=== PATIENT | female | born 1965 | race Caucasian/White ===

== ENCOUNTER 2017-10-16 10:46 | Emergency (ER) | payer OTHER ==
[~2017-10-16] VITALS: Ht 162.5 cm; Wt 93.4 kg
[2017-10-16] MEDS ORDERED: DELTASONE20 M1 PO (12:39)
[2017-10-16] MEDS ORDERED: TESSALON PERLE100 M1 PO (12:39)
[2017-10-16] MEDS ORDERED: PROVENTIL HFA6.7 GM INH (12:39)
[2017-10-16] MEDS ORDERED: HYCODAN/HYDROMET5 ML PO (12:49)
== END 2017-10-16 12:42 | disposition home or self-care (01) ==
LOC: ED 10:46
DX: J40 Bronchitis, not specified as acute or chronic (principal); F17.200 Nicotine dependence, unspecified, uncomplicated; Z90.711 Acquired absence of uterus with remaining cervical stump

== ENCOUNTER 2017-12-21 15:55 | Emergency (ER) | payer OTHER ==
[~2017-12-21] VITALS: Ht 160 cm; Wt 94.3 kg
[~2017-12-21 15:55] MED LIST: DELTASONE20 M1 PO; HYCODAN/HYDROMET5 ML PO; PROVENTIL HFA6.7 GM INH; TESSALON PERLE100 M1 PO
[2017-12-21 16:48] LABS: BASO # 0.1 10*3/uL (0.0-0.1); BASO % 0.6 % (0.0-1.0); EOS # 0.1 10*3/uL (0.0-0.4); EOS % 0.8 % (1.0-4.0); HEMATOCRIT 42.4 % (37.0-47.0); HEMOGLOBIN 14.1 g/dl (12.0-16.0); LYMPH # 2.9 10*3/uL (1.3-4.4); LYMPH % 35.2 % (27.0-41.0); MEAN CELL VOLUME 85.5 fl (81.0-99.0); MEAN CORPUSCULAR HGB 28.4 pg (27.0-31.0); MEAN CORPUSCULAR HGB CONC 33.3 g/dl (33.0-37.0); MEAN PLATELET VOLUME 11.5 fl (9.6-12.3); MONO # 0.6 10*3/uL (0.1-1.0); MONO % 6.8 % (3.0-9.0); NEUT # 4.7 10*3/uL (2.3-7.9); NEUT % 56.4 % (47.0-73.0); PLATELET COUNT AUTOMATED 219 10*3/uL (130-400); RED BLOOD COUNT 4.96 10*6/uL (4.10-5.10); RED CELL DISTRI WIDTH 12.2 % (0-14.5); WHITE BLOOD COUNT 8.3 10*3/uL (4.8-10.8)
[2017-12-21 16:52] LABS: BILIRUBIN NEGATIVE (NEGATIVE); BLOOD NEGATIVE (NEGATIVE); CLARITY CLEAR (CLEAR); COLOR YELLOW (YELLOW); GLUCOSE 2+ (NEGATIVE); KETONE NEGATIVE (NEGATIVE); LEUKO ESTERASE NEGATIVE (NEGATIVE); NITRITE NEGATIVE (NEGATIVE); SPECIFIC GRAVITY <= 1.005 (1.005-1.030); UROBILINOGEN 0.2 E.U./dl (0.2-1.0)
[2017-12-21 17:04] LABS: WBC 0-2 wbc/hpf (0-5)
[2017-12-21 17:04] LABS: ALBUMIN 3.9 gm/dl (3.1-4.5); ALKALINE PHOSPHATASE 169 U/L (45-117); BUN 12 mg/dl (7-24); CHLORIDE 100 mmol/L (98-107); CREATININE 1.12 mg/dL (0.55-1.02); SGOT/AST 15 IU/L (3-35); SGPT/ALT 32 U/L (12-78); SODIUM 135 mmol/L (136-145); TOTAL PROTEIN 7.5 gm/dL (6.4-8.2)
[2017-12-21] MEDS ORDERED: METFORMIN HCL500 MG PO (18:19)
== END 2017-12-21 18:32 | disposition home or self-care (01) ==
LOC: ED 15:55
PROVIDERS: Emergency Medicine
DX: E11.9 Type 2 diabetes mellitus without complications (principal); Z90.711 Acquired absence of uterus with remaining cervical stump; Z79.899 Other long term (current) drug therapy

== ENCOUNTER 2021-12-03 13:02 | Emergency (ER) | payer OTHER ==
[~2021-12-03] VITALS: Ht 162.5 cm; Wt 95.3 kg
[~2021-12-03 13:02] MED LIST changes: +METFORMIN HCL500 MG PO
[2021-12-03 14:49] LABS: BASO # 0.1 10*3/uL (0.0-0.1); BASO % 0.7 % (0.0-1.0); EOS # 0.1 10*3/uL (0.0-0.4); HEMATOCRIT 43.8 % (37.0-47.0); LYMPH # 1.9 10*3/uL (1.3-4.4); LYMPH % 20.7 % (27.0-41.0); MEAN CELL VOLUME 86.2 fl (81.0-99.0); MEAN CORPUSCULAR HGB 28.7 pg (27.0-31.0); MEAN CORPUSCULAR HGB CONC 33.3 g/dl (33.0-37.0); MEAN PLATELET VOLUME 10.5 fl (9.6-12.3); MONO # 0.8 10*3/uL (0.1-1.0); MONO % 9.1 % (3.0-9.0); NEUT # 6.1 10*3/uL (2.3-7.9); NEUT % 68.2 % (47.0-73.0); PLATELET COUNT AUTOMATED 295 10*3/uL (130-400); RED BLOOD COUNT 5.08 10*6/uL (4.10-5.10); WHITE BLOOD COUNT 8.9 10*3/uL (4.8-10.8)
[2021-12-03 15:06] LABS: CREATININE 1.14 mg/dL (0.55-1.02); POTASSIUM 3.8 mmol/L (3.5-5.1); TOTAL PROTEIN 7.2 gm/dL (6.4-8.2)
[2021-12-03] MEDS ORDERED: CIPRO500 MG PO (19:06)
[2021-12-03] MEDS ORDERED: METRONIDAZOLE500 M1 PO (19:06)
== END 2021-12-03 19:27 | disposition home or self-care (01) ==
LOC: ED 13:02
PROVIDERS: Physician Assistant
DX: K52.9 Noninfective gastroenteritis and colitis, unspecified (principal); Z90.711 Acquired absence of uterus with remaining cervical stump

== ENCOUNTER → 2022-12-12 | Outpatient (CLI) | payer MEDICAID ==
[~2022-12-12] MED LIST changes: +CIPRO500 MG PO; +METRONIDAZOLE500 M1 PO
== END | disposition home or self-care (01) ==
LOC: US 10-14 08:30
PROVIDERS: ATTEND Nurse Practitioner
DX: K76.0 Fatty (change of) liver, not elsewhere classified (principal)

== ENCOUNTER 2022-12-20 12:29 | Emergency (ER) | payer MEDICAID ==
[~2022-12-20] VITALS: Ht 162.5 cm; Wt 82.6 kg
[2022-12-20 13:00] LABS: BASO # 0.1 10*3/uL (0.0-0.1); BASO % 0.5 % (0.0-1.0); EOS # 0.1 10*3/uL (0.0-0.4); EOS % 0.7 % (1.0-4.0); HEMATOCRIT 44.7 % (37.0-47.0); LYMPH # 2.8 10*3/uL (1.3-4.4); LYMPH % 26.8 % (27.0-41.0); MEAN CORPUSCULAR HGB 29.2 pg (27.0-31.0); MEAN CORPUSCULAR HGB CONC 33.6 g/dl (33.0-37.0); MEAN PLATELET VOLUME 10.4 fl (9.6-12.3); MONO # 0.6 10*3/uL (0.1-1.0); MONO % 5.9 % (3.0-9.0); NEUT % 65.9 % (47.0-73.0); PLATELET COUNT AUTOMATED 250 10*3/uL (130-400); RED BLOOD COUNT 5.14 10*6/uL (4.10-5.10); RED CELL DISTRI WIDTH 12.6 % (0-14.5); WHITE BLOOD COUNT 10.5 10*3/uL (4.8-10.8)
[2022-12-20 13:12] LABS: ACT PARTIAL THROMBO TIME 30.3 SECONDS (20.0-32.1)
[2022-12-20 13:33] LABS: ALKALINE PHOSPHATASE 129 U/L (46-116); BUN 16 mg/dl (9-23); CHLORIDE 105 mmol/L (98-107); LIPASE 41 U/L (12-53); POTASSIUM 4.1 mmol/L (3.4-5.1); SGPT/ALT 30 U/L (10-49); TOTAL PROTEIN 6.8 gm/dL (6.0-8.0)
[2022-12-20] MEDS ORDERED: ONDANSETRON4 MG SL (15:32)
== END 2022-12-20 15:42 | disposition home or self-care (01) ==
LOC: ED 12:29
PROVIDERS: Emergency Medicine
DX: R07.9 Chest pain, unspecified (principal); R11.0 Nausea

== ENCOUNTER → 2025-03-31 | Outpatient (CLI) | payer OTHER ==
[~2025-03-31] MED LIST changes: +ONDANSETRON4 MG SL
== END | disposition home or self-care (01) ==
LOC: RAD 09:46
PROVIDERS: ATTEND Nurse Practitioner
DX: S39.92XA Unspecified injury of lower back, initial encounter (principal); X58.XXXA Exposure to other specified factors, initial encounter; Y93.89 Activity, other specified; Y92.89 Other specified places as the place of occurrence of the external cause; Y99.8 Other external cause status